=== PATIENT | female | born 1955 | race Caucasian/White ===

== ENCOUNTER 2020-01-04 07:34 | Outpatient (CLI) | payer OTHER, SELFPAY ==
--- NOTE | ~2020-01-04 | MM_ITS ---
EXAMINATION: MM screening jourdan RT w jeannie HISTORY: Screening mammogram TECHNIQUE: Craniocaudal and mediolateral oblique 3-D tomosynthesis images were obtained and synthetic 2-D images were generated. CAD analysis was submitted and interpreted. COMPARISON: 12/31/2018, 01/06/2018, 01/07/2017 right digital screening mammogram examinations BREAST PARENCHYMAL COMPOSITION: There are scattered areas of fibroglandular density. FINDINGS: There is no evidence of suspicious mass, calcification, or architectural distortion to sugg est malignancy. There has been no suspicious interval change. IMPRESSION: 1. No mammographic evidence of malignancy. 2. Recommend routine screening mammography in one year. BI-RADS Category 1: Negative Reviewed, dictated and finalized at location A. 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
== END 2020-01-04 07:35 | disposition home or self-care (01) ==
PROVIDERS: PCP Obstetrics & Gynecology; Visit Provider Obstetrics & Gynecology
DX: Z12.31 Encounter for screening mammogram for malignant neoplasm of breast (principal)
CPT/HCPCS: 77063; 77067

== ENCOUNTER 2021-01-09 08:19 | Outpatient (CLI) | payer MEDICARE, SELFPAY ==
--- NOTE | ~2021-01-09 | MM_ITS ---
EXAMINATION: MM screening jourdan RT w jeannie HISTORY: Screening mammogram TECHNIQUE: Craniocaudal and mediolateral oblique 3-D tomosynthesis images were obtained and synthetic 2-D images were generated. CAD analysis was submitted and interpreted. COMPARISON: 01/04/2020, 12/31/2018, 01/06/2018 right screening mammogram examinations BREAST PARENCHYMAL COMPOSITION: There are scattered areas of fibroglandular density. FINDINGS: History of right breast reduction in 2006. There is no evidence of suspicious mass, calcifi cation, or architectural distortion to suggest malignancy in either breast. There has been no suspici ous interval change. IMPRESSION: 1. No mammographic evidence of malignancy. 2. Recommend routine screening mammography in one year. BI-RADS Category 1: Negative Reviewed, dictated and finalized at location A. 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
== END 2021-01-09 08:20 | disposition home or self-care (01) ==
LOC: ANHIMG 08:22
PROVIDERS: PCP Obstetrics & Gynecology; Visit Provider Obstetrics & Gynecology
DX: Z12.31 Encounter for screening mammogram for malignant neoplasm of breast (principal)
CPT/HCPCS: 77063; 77067

== ENCOUNTER 2021-07-14 13:47 | Emergency (ER) | payer MEDICARE, SELFPAY ==
[2021-07-14 13:53] VITALS: BP 160/89; PULSE 108; RESP 18; TEMP 36.9; O2SAT 100
--- NOTE | 2021-07-14 14:15 | ED.EAR ---
HPI - Ear Problem General Chief complaint: Ear Stated complaint: Lt Ear Irritation Time Seen by Provider: 07/14/21 14:15 History of Present Illness HPI Narrative: Martha Riojas is a 65 yo female with PMH with breast cancer [facility] who comes with left ear pain and feels like there is cotton cotton in the ear from use of a Q-tip yesterday Related Data Allergies Allergy/AdvReac Type Severity Reaction Status Date / Time Penicillins Allergy Severe Swelling Verified 07/14/21 13:58 of Lip/Tongue/Throat HYDROCODONE BIT Allergy Mild Hives Uncoded 07/14/21 13:58 Review of Systems Review of Systems: CONSTITUTIONAL: Denies fever, chills, sweats. EYES: Denies visual changes, redness, discharge. ENT: Denies rhinorrhea, congestion, sore throat, left otalgia. Feels clogged CARDIOVASCULAR: Denies chest pain, palpitations, edema. RESPIRATORY: Denies dyspnea, wheezing, cough GASTROINTESTINAL: Denies abdominal pain, nausea, vomiting, diarrhea. GENITOURINARY: Denies dysuria, hematuria, abnormal discharge SKIN: Denies rash or itching. NEUROLOGIC: Denies numbness, or focal weakness. PSYCHIATRIC: Denies anxiety or depression. [facility] Past Medical History Medical History Breast cancer Social History Social History (Updated 07/14/21 @ 14:18 by Flor Bradley CNP) Smoking status: Never smoker Alcohol use details: Rarely drinks Comments At time of signature, I agree with nursing past medical, surgical, social and family history. There is no relevant family history pertinent to the presenting complaint. Exam Narrative: GENERAL: This is a well-nourished, well-developed patient, in mild distress. HEAD: normocephalic, atraumatic. EYES: Sclera clear/white. Vision is grossly intact. EARS: External ears normal, auditory canal on left is mildly erythematous and patient complaining of feeling like something is in there- TMs normal without perforation. Hearing grossly intact. NOSE: External nose normal without nasal discharge, nares without redness, no rhinorrhea. THROAT: Mucous membranes moist, NECK: Neck supple, non-tender CARDIOVASCULAR: Regular rate and rhythm without murmurs, gallops, or rubs. RESPIRATORY: Clear to auscultation. Breath sounds equal bilaterally. No wheezes, rales, or rhonchi. GASTROINTESTINAL: Not done SKIN: warm, intact with no suspicious lesions or rash, good texture and turgor. NEURO: awake, alert, and oriented to person, place and time. There were no obvious focal neurologic abnormalities. Steady gait EXTREMITIES: Normal range of motion. BACK: Nontender without deformity Course Course Emergency Course: Patient comes with a left ear pain and feeling like cotton was left in the ear from her using a Q-tip Left ear flushed with normal saline with an elephant ear with little to no return questionable cotton fibers but no large amount return Patient given Debrox and polymyxin eardrops and if sensation continues should go to ENT Level of Care: Express Care Visit Vital Signs Vital signs: Vital Signs Temperature 98.5 F 07/14/21 13:53 Pulse Rate 108 H 07/14/21 13:53 Respiratory Rate 18 07/14/21 13:53 Blood Pressure 160/89 H 07/14/21 13:53 Pulse Oximetry 100 07/14/21 13:53 Oxygen Delivery Room Air 07/14/21 13:53 Temperature 98.5 F 07/14/21 13:53 Pulse Rate 108 H 07/14/21 13:53 Respiratory Rate 18 07/14/21 13:53 Blood Pressure 160/89 H 07/14/21 13:53 Pulse Oximetry 100 07/14/21 13:53 Oxygen Delivery Room Air 07/14/21 13:53 Procedures Foreign Body Removal Foreign Body #1: Foreign Body Removal Date: 07/14/21 Foreign Body Removal Time: 14:00 Time Out Performed: no Site: left and ear Description of foreign body: other (cotton) Technique: other (irrigation) Confirmed by:: patient report Complications: bleeding Post-procedure exam: awake,
== END 2021-07-14 14:27 | disposition home or self-care (01) ==
PROVIDERS: Emergency Provider Nurse Practitioner; PCP Internal Medicine
DX: S00.412A Abrasion of left ear, initial encounter (principal); X58.XXXA Exposure to other specified factors, initial encounter; Z85.3 Personal history of malignant neoplasm of breast
CPT/HCPCS: 99213; G0463

== ENCOUNTER 2021-08-24 07:52 | Outpatient (CLI) | payer MEDICARE, SELFPAY ==
[2021-08-24 08:20] LABS: Basophils Percent Auto 0.2 % (0.2-1.2); Eosinophils Absolute Auto 0.1 K/mm3 (0-0.3); Eosinophils Percent Auto 1.9 % (0-4.4); Hemoglobin 15.8 g/dL (12.0-15.0); Immature Granulocyte Absolute 0.02 K/mm3 (0.00-0.031); Immature Granulocyte Percent A 0.4 % (0-0.5); Lymphocytes Absolute Auto 1.48 K/mm3 (0.9-3.2); Mean Corpuscular HGB Conc 34.3 g/dl (32-36); Mean Corpuscular Hemoglobin 28.1 pg (26-34); Mean Corpuscular Volume 81.9 fl (80-100); Mean Platelet Volume 8.9 fl (7.4-10.4); Monocytes Absolute Auto 0.3 K/mm3 (0.1-0.6); Monocytes Percent Auto 5.4 % (2.6-8.5); Neutrophils Absolute Auto 3.8 K/mm3 (1.3-6.7); Neutrophils Percent Auto 66.1 % (45.5-73.1); Platelet Count Result 287 k/mm3 (150-375); Red Blood Count 5.62 M/mm3 (4.2-5.4); Red Cell Distribution Width 12.3 % (11.5-14.5); White Blood Count 5.7 K/mm3 (4.5-10.0)
[2021-08-24 09:23] LABS: Alanine Aminotransferase 34 U/L (6-35); Albumin Level 4.7 g/dL (3.5-5.1); Alkaline Phosphatase 121 U/L (38-126); Anion Gap 7 mmol/L (8-16); Aspartate Amino Transferase 27 U/L (14-36); Bilirubin,Total 0.6 mg/dL (0.2-1.3); Blood Urea Nitrogen 15 mg/dL (7-17); Calcium 9.5 mg/dL (8.4-10.2); Carbon Dioxide 27 mmol/L (22-30); Chloride 103 mmol/L (98-107); Cholesterol 263 mg/dL (0-200); Estimated Glomerular Filt Rate > 60; Glucose 109 mg/dL (65-110); HDL Direct 37 mg/dL; Potassium 4.1 mmol/L (3.4-5.0); Sodium 137 mmol/L (137-145); Triglycerides 191 mg/dL (<150)
[2021-08-24 09:34] LABS: LDL Cholesterol Direct 162 mg/dL
[2021-08-24 10:28] LABS: Folic Acid > 20.0 ng/mL (2.76->20)
== END 2021-08-24 07:53 | disposition home or self-care (01) ==
LOC: ANHLAB 07:56
PROVIDERS: PCP Internal Medicine; Visit Provider Internal Medicine
DX: R53.83 Other fatigue (principal); R74.8 Abnormal levels of other serum enzymes
CPT/HCPCS: 36415; 80053; 80061; 82607; 82746; 84443; 85025

== ENCOUNTER 2021-10-23 00:28 | Day surgery (SDC) | payer MEDICARE, SELFPAY ==
[2021-10-06 16:03] VITALS: BMI 25.5
--- NOTE | 2021-10-20 15:30 | PM.HPGS ---
History of Present Illness History of Present Illness Consent: Risks, benefits, and alternatives have been discussed and questions answered. Patient agrees to proceed with procedure. Chief complaint: neoplasm screening Narrative: Martha Riojas is a 66 year old female Referred for colon cancer screening. Her last colonoscopy was 11 years ago and was unremarkable. Review of Systems Review of Systems: All systems reviewed & are unremarkable except as noted in HPI and below PMFSH Past Medical History Medical History Allergies Breast cancer Encounter for exchange of left breast implant Surgical History Surgical History History of appendectomy History of breast mammoplasty History of delivery History of left breast implant History of left mastectomy Family History Family History Father Heart attack Mother Breast cancer Hypothyroidism Social History Social History Smoking status: Never smoker Alcohol intake: never Alcohol use details: Rarely drinks Substance use: never Substance use type: does not use Living arrangements: with family Spiritual care concerns: No Meds Home Medications and Allergies Home Medications Medication Instructions Recorded Confirmed Type Lactobacillus acidophilus 10 mg PO DAILY 08/21/21 10/23/21 History (Acidophilus capsule) calcium phos,tribasic 260 mg-D3 25 1 tablet PO DAILY 08/21/21 10/23/21 History mcg-herbal 50 mg chewable tablet (Alive Calcium-Vitamin D3) estradiol 0.01% (0.1 mg/gram) 1 appful vaginal .PRN 08/21/21 10/23/21 History vaginal cream fluticasone propionate 50 1 spray intranasal DAILY 08/21/21 10/23/21 History mcg/actuation nasal spray,suspension (Flonase Allergy Relief) multivitamin 1 tablet PO DAILY 08/21/21 10/23/21 History omega 5-rjc-jqo-fish oil 300 1 cap PO DAILY 08/21/21 10/23/21 History mg-1,000 mg capsule (Fish Oil) Allergies Allergy/AdvReac Type Severity Reaction Status Date / Time Penicillins Allergy Severe Swelling Verified 10/23/21 08:35 of Lip/Tongue/Throat HYDROCODONE BIT Allergy Mild Hives Uncoded 10/23/21 08:35 Exam Resp: Auscultation: clear to auscultation bilaterally Cardio: Rate: regular rate Rhythm: regular rhythm GI: GI Palp: Yes Soft to palpation and No Tenderness to palpation present (GI) Assessment and Plan Assessment and plan (1) Colon cancer screening: Code(s): Z12.11 - Encounter for screening for malignant neoplasm of colon Status: Acute Assessment and Plan: Colonoscopy with possible biopsy or polypectomy or cautery or injection of substances.
--- NOTE | 2021-10-23 07:49 | P.PNAN_ITS ---
Anes - Initial Pre Proc Eval Procedure: Operation Date: 10/23/21 09:30 Proposed Procedures p Screening Colonoscopy - Franki Ibarra MD Date/Time: 10/23/21 07:49 Surgeon: Franki Ibarra MD Pre Op Diagnosis: neoplasm screening Patient Data Age: 66 Gender: F Height: 1.63 m Weight: 67.5 kg Allergies Allergy/AdvReac Type Severity Reaction Status Date / Time Penicillins Allergy Severe Swelling Verified 10/23/21 08:35 of Lip/Tongue/Throat HYDROCODONE BIT Allergy Mild Hives Uncoded 10/23/21 08:35 Home Medications Medication Instructions Recorded Confirmed Type Lactobacillus acidophilus 10 mg PO DAILY 08/21/21 10/23/21 History (Acidophilus capsule) calcium phos,tribasic 260 mg-D3 25 1 tablet PO DAILY 08/21/21 10/23/21 History mcg-herbal 50 mg chewable tablet (Alive Calcium-Vitamin D3) estradiol 0.01% (0.1 mg/gram) 1 appful vaginal .PRN 08/21/21 10/23/21 History vaginal cream fluticasone propionate 50 1 spray intranasal DAILY 08/21/21 10/23/21 History mcg/actuation nasal spray,suspension (Flonase Allergy Relief) multivitamin 1 tablet PO DAILY 08/21/21 10/23/21 History omega 2-smp-dny-fish oil 300 1 cap PO DAILY 08/21/21 10/23/21 History mg-1,000 mg capsule (Fish Oil) Patient hx anesthesia problems: none Family hx anesthesia problems: none Results Review: All pre-operative results and documents have been reviewed as part of the pre- operative evaluation. [facility] Past Medical History Medical History (Updated 10/20/21 @ 15:39 by Franki Ibarra MD) Allergies Breast cancer Encounter for exchange of left breast implant Surgical History Surgical History (Updated 08/21/21 @ 14:01 by Fan Hickey MA) History of appendectomy History of breast mammoplasty History of delivery History of left breast implant History of left mastectomy Family History Family History (Updated 08/21/21 @ 14:02 by Fan Hickey MA) Father Heart attack Mother Breast cancer Hypothyroidism Social History Social History Smoking status: Never smoker Alcohol intake: never Alcohol use details: Rarely drinks Substance use: never Substance use type: does not use Living arrangements: with family Spiritual care concerns: No Anes - Eval Final PreProcedure Day of Procedure 10/23/21 07:49 Patient weight: overweight Heart: regular rate and rhythm Lungs: clear to auscultation Airway: Mallampati scale class II Neurological: alert and oriented Last oral intake: >/= 8 hours ASA classification: II Emergent: no Anesthetic plan: proceed Anesthesia type and monitoring: general GIVS and standard monitoring Results Review: All pre-operative results and documents have been reviewed as part of the pre- operative evaluation. Informed Consent: The patient's anesthetic plan and its attendant risks and benefits were discussed with the patient/family/POA. Questions were solicited and answers provided to the satisfaction of the patient/family/POA.
[2021-10-23 08:36] VITALS: BP 186/87; PULSE 140; RESP 17; TEMP 36.8; O2SAT 97; BMI 24.3
[2021-10-23] MEDS: LACTATED RINGERS 1,000 ML 150 ML IV CONT (09:24)
[2021-10-23 09:47] VITALS: BP 109/66; PULSE 103; RESP 17; O2SAT 100
[2021-10-23 09:57] VITALS: BP 114/74; PULSE 100; RESP 17; O2SAT 98
[2021-10-23 10:05] VITALS: BP 116/75; PULSE 98; RESP 17; O2SAT 98
== END 2021-10-23 10:18 | disposition home or self-care (01) ==
PROVIDERS: PCP Internal Medicine; Visit Provider Internal Medicine Gastroenterology
PROC: 0DJD8ZZ Inspection of Lower Intestinal Tract, Via Natural or Artificial Opening Endoscopic (ICD-10-PCS; CPT 45378; principal; 2021-10-23 09:30)
DX: Z12.11 Encounter for screening for malignant neoplasm of colon (principal); K57.30 Diverticulosis of large intestine without perforation or abscess without bleeding; Z85.3 Personal history of malignant neoplasm of breast
CPT/HCPCS: G0121; J2704; J7120

== ENCOUNTER 2022-01-19 10:16 | Outpatient (CLI) | payer MEDICARE, SELFPAY ==
--- NOTE | ~2022-01-19 | MM_ITS ---
EXAMINATION: MM screening jourdan RT w jeannie HISTORY: Screening right mammogram, history of left mastectomy TECHNIQUE: Craniocaudal and mediolateral oblique 3-D tomosynthesis images were obtained and synthetic 2-D images were generated. CAD analysis was submitted and interpreted. COMPARISON: 01/09/2021, 01/04/2020, 12/31/2018 BREAST PARENCHYMAL COMPOSITION: There are scattered areas of fibroglandular density. FINDINGS: An asymmetry is present in the middle third of the outer breast 5 cm from the nipple on the craniocaudal view. IMPRESSION: 1. Right breast asymmetry on the craniocaudal view. 2. Additional mammographic views and possible breast ultrasound are recommended. BI-RADS Category 0: Incomplete: Needs additional imaging evaluation. Reviewed, dictated and finalized at location A. 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 Right breast asymmetry on the craniocaudal view. 2. Additional mammographic views and possible breast ultrasound are recommended . BI-RADS Category 0: Incomplete: Needs additional imaging evaluation.
== END 2022-01-19 10:17 | disposition home or self-care (01) ==
PROVIDERS: PCP Internal Medicine; Visit Provider Obstetrics & Gynecology
DX: Z12.31 Encounter for screening mammogram for malignant neoplasm of breast (principal); R92.8 Other abnormal and inconclusive findings on diagnostic imaging of breast
CPT/HCPCS: 77063; 77067

== ENCOUNTER 2022-02-13 12:42 | Outpatient (CLI) | payer MEDICARE, SELFPAY ==
--- NOTE | ~2022-02-13 | MM_ITS ---
EXAMINATION: MM diagnostic jourdan RT w jeannie HISTORY: Right breast asymmetry on screening mammogram TECHNIQUE: Additional 3-D tomosynthesis images of the right breast were performed and synthetic 2-D i mages were generated. CAD analysis was submitted and interpreted. COMPARISON: 01/19/2022, 01/09/2021, 01/04/2020 FINDINGS: There is a return to baseline fibroglandular appearance with spot compression of the right breast in the area questioned on screening mammogram. No suspicious mass, calcification, or it network architect ural distortion are identified. IMPRESSION: 1. No mammographic evidence of malignancy. 2. Recommend routine screening mammography in one year. BI-RADS Category 1: Negative Reviewed, dictated and finalized at location A. 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
== END 2022-02-13 12:43 | disposition home or self-care (01) ==
PROVIDERS: PCP Internal Medicine; Visit Provider Obstetrics & Gynecology
DX: R92.8 Other abnormal and inconclusive findings on diagnostic imaging of breast (principal)
CPT/HCPCS: 77061; 77065; G0279

== ENCOUNTER 2022-10-02 07:37 | Outpatient (CLI) | payer MEDICARE, SELFPAY ==
[2022-10-02 08:06] LABS: Basophils Percent Auto 0.9 % (0.2-1.2); Eosinophils Absolute Auto 0.1 K/mm3 (0-0.3); Eosinophils Percent Auto 3.1 % (0-4.4); Hematocrit 47.6 % (37.0-47.0); Hemoglobin 16.1 g/dL (12.0-15.0); Immature Granulocyte Absolute 0.03 K/mm3 (0.00-0.031); Immature Granulocyte Percent A 0.7 % (0-0.5); Lymphocytes Absolute Auto 1.44 K/mm3 (0.9-3.2); Lymphocytes Percent Auto 31.4 % (18.3-44.2); Mean Corpuscular HGB Conc 33.8 g/dl (32-36); Mean Corpuscular Hemoglobin 28.2 pg (26-34); Mean Corpuscular Volume 83.5 fl (80-100); Mean Platelet Volume 9.4 fl (7.4-10.4); Monocytes Absolute Auto 0.3 K/mm3 (0.1-0.6); Monocytes Percent Auto 5.9 % (2.6-8.5); Neutrophils Absolute Auto 2.7 K/mm3 (1.3-6.7); Platelet Count Result 236 k/mm3 (150-375); Red Cell Distribution Width 13.1 % (11.5-14.5); White Blood Count 4.6 K/mm3 (4.5-10.0)
[2022-10-02 08:24] LABS: Alanine Aminotransferase 34 U/L (6-35); Albumin Level 4.6 g/dL (3.5-5.1); Alkaline Phosphatase 109 U/L (38-126); Anion Gap 9 mmol/L (8-16); Aspartate Amino Transferase 28 U/L (14-36); Bilirubin,Total 0.5 mg/dL (0.2-1.3); Blood Urea Nitrogen 12 mg/dL (7-17); Calcium 9.5 mg/dL (8.4-10.2); Carbon Dioxide 25 mmol/L (22-30); Chloride 103 mmol/L (98-107); Cholesterol 262 mg/dL (0-200); Estimated Glomerular Filt Rate > 60; Glucose 119 mg/dL (65-110); HDL Direct 42 mg/dL; Sodium 137 mmol/L (137-145); Triglycerides 261 mg/dL (<150)
[2022-10-02 08:35] LABS: LDL Cholesterol Direct 150 mg/dL
== END 2022-10-02 07:38 | disposition home or self-care (01) ==
PROVIDERS: PCP Internal Medicine; Visit Provider Internal Medicine
DX: C50.919 Malignant neoplasm of unspecified site of unspecified female breast (principal); R53.83 Other fatigue; I10 Essential (primary) hypertension; E78.5 Hyperlipidemia, unspecified
CPT/HCPCS: 36415; 80053; 80061; 84443; 85025

== ENCOUNTER 2023-06-03 07:51 | Outpatient (CLI) | payer MEDICARE, SELFPAY ==
--- NOTE | ~2023-06-03 | MM_ITS ---
EXAMINATION: MM screening jourdan RT w jeannie HISTORY: Screening mammogram TECHNIQUE: Craniocaudal and mediolateral oblique 3-D tomosynthesis images were obtained and synthetic 2-D images were generated. CAD analysis was submitted and interpreted. COMPARISON: 02/13/2022 diagnostic right mammogram 01/19/2022, 01/09/2021 right screening mammogram examinations BREAST PARENCHYMAL COMPOSITION: There are scattered areas of fibroglandular density. FINDINGS: There is no evidence of suspicious mass, calcification, or architectural distortion to sugg est malignancy in either breast. There has been no suspicious interval change. IMPRESSION: 1. No mammographic evidence of malignancy. 2. Recommend routine screening mammography in one year. BI-RADS Category 1: Negative Reviewed, dictated and finalized at location A.
== END 2023-06-03 07:52 | disposition home or self-care (01) ==
LOC: ANHIMG 07:54
PROVIDERS: PCP Obstetrics & Gynecology; Visit Provider Obstetrics & Gynecology
DX: Z12.31 Encounter for screening mammogram for malignant neoplasm of breast (principal)
CPT/HCPCS: 77063; 77067

== ENCOUNTER 2024-02-21 11:24 | Emergency (ER) | payer MEDICARE, SELFPAY ==
--- NOTE | ~2024-02-21 | XR_ITS ---
EXAMINATION: XR wrist LT min 3V DATE: 02/21/2024 11:48 INDICATION: Left wrist pain. Fall. TECHNIQUE: 3 views of left wrist were obtained. COMPARISON: None. FINDINGS: There is a comminuted fractured of distal radius without involvement of the distal radiouln ar joint or distal articular surface. The main distal fracture fragment demonstrates impaction, 3 mm dorsal displacement, and dorsal angulation. There is 35 degrees dorsal tilt of the distal articular s urface. Joint spaces are normal. IMPRESSION: 1. Comminuted fracture of distal radius. Reviewed, dictated and finalized at location A. S ROOM SUPERVISOR
[2024-02-21 11:28] VITALS: BP 120/47; PULSE 75; RESP 14; TEMP 36.2; O2SAT 100
--- NOTE | 2024-02-21 11:32 | PC.NURSE ---
Ice pack/sling applied in Triage
--- NOTE | 2024-02-21 12:37 | ED.UPPEXIN ---
HPI - Extremity Injury (Upper) General Chief Complaint: Extremity Injury, Upper Stated Complaint: L wrist injury Time Seen by Provider: 02/21/24 12:20 this is a 68-year-old female who presents to the ED for chief complaint of left wrist injury that occurred just prior to arrival. Patient was outside shoveling snow when she slipped on the ice. States that she fell onto an outstretched left hand. Reports immediate pain to the left wrist but no pain throughout the forearm, elbow or shoulder. Denies numbness, weakness or any further injury. Source: patient Mode of arrival: ambulatory Limitations: no limitations Related Data Home Medications ?Medication ?Instructions ?Recorded ?Confirmed ?Last Taken ?Type Lactobacillus acidophilus 10 mg PO DAILY 08/21/21 10/08/22 10/22/21 History (Acidophilus capsule) calcium 260 mg (phos,tribasic)-D3 1 tablet PO DAILY 08/21/21 10/08/22 10/22/21 History 25 mcg-herbal 50 mg chewable tablet (Alive Calcium-Vitamin D3) estradiol 0.01% (0.1 mg/gram) 1 appful vaginal .PRN 08/21/21 10/08/22 10/22/21 History vaginal cream fluticasone propionate 50 1 spray intranasal DAILY 08/21/21 10/08/22 10/22/21 History mcg/actuation nasal spray,suspension (Flonase Allergy Relief) multivitamin 1 tablet PO DAILY 08/21/21 10/08/22 10/22/21 History omega 0-ejb-egf-fish oil 300 1 cap PO DAILY 08/21/21 10/08/22 10/22/21 History mg-1,000 mg capsule (Fish Oil) fexofenadine 180 mg tablet 180 mg PO DAILY 06/04/22 10/08/22 Unknown History (Nga Allergy) Allergies Allergy/AdvReac Type Severity Reaction Status Date / Time Penicillins Allergy Severe Swelling Verified 02/21/24 12:35 of Lip/Tongue/Throat hydrocodone Allergy Mild Hives Verified 02/21/24 12:58 Review of Systems Review of Systems: All systems as dictated in HPI PMFSH Past Medical History Medical History Allergies Breast cancer Encounter for exchange of left breast implant Surgical History Surgical History History of appendectomy History of breast mammoplasty History of delivery History of left breast implant History of left mastectomy Family History Family History Father Heart attack Mother Breast cancer Hypothyroidism Social History Social History Smoking status: Never smoker Alcohol intake: never Alcohol use details: Rarely drinks Substance use: never Substance use type: does not use Lack of Transportation: No Lack of Food: Never True Current Housing: I Have Housing Concerned About Future Housing: No Difficulty Paying Gas/Electric Bills: No Difficulty Paying for Meds: No Currently Unemployed: No Education: Associate Degree Difficulty w/ Childcare or Family Care: No Living arrangements: with family Spiritual care concerns: No Exam Narrative: GENERAL: Well-appearing, well-nourished, and in no acute distress. HEAD: Normocephalic, atraumatic. EYES: PERRLA and EOMI. ENT: Nares clear, no rhinorrhea or epistaxis. Mucous membranes moist. Oropharynx without tonsillar hypertrophy exudate or other lesions. NECK: Supple. No adenopathy or masses. CHEST: No respiratory distress. Clear to auscultation. No wheezes rales or rhonchi HEART: Regular rate and rhythm. No murmur heard. Normal peripheral pulses. ABDOMEN: Soft, nontender, nondistended, normal active bowel sounds. MSK: LUE: Moderate swelling and tenderness throughout the left wrist. No crepitus. No bruising. Neurovascularly intact distally. No gross deformity. R UE: Benign SKIN: Warm, dry, no rash. NEURO: Alert and oriented x4. No focal deficits. PSYCH: Normal mood and affect. Course Vital Signs Vital signs: Vital Signs Temperature 97.1 F L 02/21/24 11:28 Pulse Rate 75 02/21/24 11:28 Respiratory Rate 14 02/21/24 11:28 Blood Pressure 120/47 L 02/21/24 11:28 Pulse Oximetry 100 02/21/24 11:28 Temperature 98.3 F 02/21/24 13:45 Pulse Rate 73 02/21/24 13:45 Respiratory Rate 16 02/21/24 13:45 Blood Pressure 132/55 L 02/21/24 13:45 Pulse Oximetry 99 02/21/24 13:45 MDM - Extremity Injury (Upper) MDM Narrative Medical decision making narrative: This is a 60-year-old female who presents to the ED for chief complaint of left wrist injury that occurred just prior to arrival. She slipped and fell on the ice. Vitals are normal. Exam is remarkable for the above. There is no gross deformity to the wrist or neurovascular compromise. Left wrist x-rays: IMPRESSION: 1. Comminuted fracture of distal radius. Overall the wrist does not appear deformed or have any significant displacement on x-rays. The patient was placed in sugar-tong splint and orthopedic referral will be given. Given dose of pain medications here and will be given short course for [place] for breakthrough pain. Patient will be discharged in stable condition. Supportive measures discussed and return precautions given. Patient is understanding and agreeable with plan for discharge with ortho follow-up. Discharge Plan Discharge Clinical Impression: Closed fracture of left distal radius Patient Disposition: Home, Self-Care Condition: Stable Instructions: Antibiotic Form, Arm Fracture in Adults (ED), Splint Care (ED) Additional Instructions: Your exam and imaging today show a distal radius fracture of your wrist. Please follow-up with orthopedic surgery/ hand surgery for treatment and management of this issue. Continue with splint until otherwise directed by the surgeon. Take Percocet as needed for breakthrough pain. Take Tylenol and ibuprofen at baseline for pain control. Do not exceed 4000 mg of acetaminophen and 1 day. If you have any new or worsening symptoms please return to the ER for further evaluation. Patient Language: Amharic Prescriptions: New oxycodone-acetaminophen [Percocet] 5-325 mg tablet 1 tablet PO Q6H PRN (Reason: pain) Qty: 14 0RF No Action fexofenadine [Nga Allergy] 180 mg tablet 180 mg PO DAILY multivitamin Tablet 1 tablet PO DAILY Alive Calcium-Vitamin D3 260 mg calcium- 25 mcg-50 mg tablet,chewable 1 tablet PO DAILY Acidophilus Capsule 10 mg PO DAILY estradiol 0.01 % (0.1 mg/gram) cream 1 appful vaginal .PRN Rx Instructions: for 14 days omega 1-aua-swq-fish oil [Fish Oil] 300-1,000 mg capsule 1 cap PO DAILY fluticasone propionate [Flonase Allergy Relief] 50 mcg/actuation spray,suspension 1 spray intranasal DAILY Rx Instructions: administer into each nostril carvedilol 6.25 mg tablet 6.25 mg PO Q12H Qty: 180 0RF Rx Instructions: must administer with a meal/food atorvastatin 20 mg tablet 20 mg PO DAILY Qty: 90 0RF Follow-up/Referrals: Kisha Parrish MD [Physician] - Dago Mauro MD [Physician] - Jimi Marsh MD [Physician] - Time of Disposition: 12:40
[2024-02-21] MEDS: HYDROcodone/acetaminophen (*CRX) 5-325 MG TABLET 1 TAB PO (12:49)
[2024-02-21 13:45] VITALS: BP 132/55; PULSE 73; RESP 16; TEMP 36.8; O2SAT 99
== END 2024-02-21 13:50 | disposition home or self-care (01) ==
LOC: ANHED 12:43
PROVIDERS: Emergency Provider Physician Assistant; PCP Physician Assistant
DX: S52.592A Other fractures of lower end of left radius, initial encounter for closed fracture (principal); Z85.3 Personal history of malignant neoplasm of breast; Z90.12 Acquired absence of left breast and nipple; W00.0XXA Fall on same level due to ice and snow, initial encounter; Y93.H1 Activity, digging, shoveling and raking
CPT/HCPCS: 29125; 73110; 99284; A4565; A9270

== ENCOUNTER 2024-03-02 00:15 | Day surgery (SDC) | payer MEDICARE, SELFPAY ==
[2024-02-26 11:14] VITALS: BMI 24.2
--- NOTE | 2024-02-26 11:24 | PC.NURSE ---
Report to the Outpatient Waiting Room, entrance under the green pavilion located off [facility], at time __06:00am on date ___03/02/24____. Planned Procedure Time: ___07:30am .? Time changes happen often and if your time is changed the preop area will call you the afternoon before. - You and your visitor will be asked to self-screen and do not enter if you have any COVID symptoms. Please call surgeon if you need to reschedule. - A mask is optional within the hospital at this time. Patients may have clear liquids (water, carbonated beverages, clear teas, apple juice) until 3 hours prior to surgery with a maximum of 20 ounces. - No food from midnight until time of surgery and no smoking. This includes no chewing gum, candy or mints.(0430am) Take only the following medications with a SIP of water on the morning of surgery: ____Coreg and Fluoxetine, Tylenol and oxycodone if needed for pain DO NOT STOP ANY OF YOUR OTHER PRESCRIPTION MEDICATIONS PRIOR TO SURGERY EXCEPT THE FOLLOWING Medications to discontinue per physician No NSAIDS or Aspirin containing products for [address] Marsh- Date to take last dose is 02/23/24 Hold all vitamins and supplements for 3 days prior per Anesthesia. Date to take last dose___02/27/24 Please no make-up, nail hungarian, hairspray, perfume, deodorant, or body powder the day of surgery.? No jewelry (including any body piercings) or valuables the day of surgery, leave them at home.? Please take a shower or bath the night before, or the morning of, surgery with an antibacterial soap.? Wear comfortable, loose fitting clothing.? - Jewelry must be removed prior to entering the operating room.? Rings and piercings that are not removed may be cut off. - The hospital will not accept responsibility for valuables.? - Please leave all valuables, including medications, at home the day of surgery. If you are going home after surgery, a licensed city driver must drive you home.? - NO public transportation without another adult if you receive anesthesia. - We recommend that an adult stay with you for 24 hours following discharge. - We also recommend that you do not drive, make important decision, drink alcoholic beverages, or take any drugs that were not prescribed by your health care provider for at least 24 hours after your discharge time. Follow any additional instructions given to you from your surgeon. Telephone instructions given to __Patient and asked if any additional questions and then verbalized understanding. Patient advised to call surgeon office or pre surgery nurse liaison [phone] if any additional questions.
[2024-03-02] VITALS (8 sets, daily range): BP systolic 115–146; BP diastolic 56–72; PULSE 68–81; RESP 12–20; TEMP 36.2; O2SAT 98–100
--- NOTE | ~2024-03-02 | XR_ITS ---
EXAMINATION: XR surgery orthopedic DATE: 03/02/2024 09:08 INDICATION: Distal left radius fracture. TECHNIQUE: 4 intraoperative spot fluoroscopic views of left wrist were obtained. I was not present. F luoroscopy exposure time was 1 minute 27 seconds. COMPARISON: Left wrist radiographs 02/21/2024 FINDINGS: There is a comminuted fracture of distal radius status post open reduction internal fixatio n with volar plate and screws. The distal articular surface demonstrates 0 degrees tilt. IMPRESSION: 1. Comminuted fracture of distal radius status post open reduction internal fixation. Reviewed, dictated and finalized at location B. INTERN IMPRESSION: 1. Comminuted fracture of distal radius status post open reduction internal fix ation.
[2024-03-02] MEDS: LACTATED RINGERS 1,000 ML 30 ML IV CONT ×2 (06:20→09:15)
[2024-03-02] MEDS: KETOROLAC 15 MG/ML VIAL (*BKC) IV PUSH (06:25)
[2024-03-02] MEDS: ACETAMINOPHEN 500 MG TABLET 1000 MG PO (06:25)
--- NOTE | 2024-03-02 07:09 | WPDANESEPPF ---
Anes - Initial Pre Proc Eval Procedure: Operation Date: 03/02/24 07:30 Proposed Procedures p Open Reduction Internal Fixation Left Wrist Distal Radius Fracture - Jimi Marsh MD Date/Time: 03/02/24 07:09 Surgeon: Jimi Marsh MD Pre Op Diagnosis: Left Wrist Distal Radius Fracture Patient Data Age: 68 Gender: F Height: 1.63 m Weight: 65.2 kg Last Vital Signs Temp 97.2 F L 03/02/24 06:06 Pulse 80 03/02/24 06:06 Resp 18 03/02/24 06:06 BP 146/66 H 03/02/24 06:06 Pulse Ox 98 03/02/24 06:06 O2 Del Method Room Air 03/02/24 06:06 Allergies Allergy/AdvReac Type Severity Reaction Status Date / Time Penicillins Allergy Severe Swelling Verified 03/02/24 06:24 of Lip/Tongue/Throat hydrocodone Allergy Mild Hives Verified 03/02/24 06:24 Home Medications ?Medication ?Instructions ?Recorded ?Confirmed ?Type Lactobacillus acidophilus 10 mg PO DAILY 08/21/21 03/02/24 History (Acidophilus capsule) calcium 260 mg (phos,tribasic)-D3 1 tablet PO DAILY 08/21/21 03/02/24 History 25 mcg-herbal 50 mg chewable tablet (Alive Calcium-Vitamin D3) multivitamin 1 tablet PO DAILY 08/21/21 03/02/24 History omega 2-mzz-hoi-fish oil 300 1 cap PO DAILY 08/21/21 02/26/24 History mg-1,000 mg capsule (Fish Oil) atorvastatin 20 mg tablet 20 mg PO DAILY #90 tabs 09/23/23 03/02/24 Rx carvedilol 6.25 mg tablet 6.25 mg PO Q12H #180 tabs 09/23/23 03/02/24 Rx fluoxetine 20 mg capsule 20 mg PO DAILY 02/25/24 03/02/24 History oxycodone-acetaminophen 5 mg-325 1 tablet PO Q6H PRN pain #30 tabs 02/25/24 03/02/24 Rx mg tablet (Percocet) acetaminophen 500 mg tablet 500 mg PO Q6H PRN pain 02/26/24 02/26/24 History (Tylenol Extra Strength) Patient hx anesthesia problems: post op nausea/vomiting (1 time w prev surgery for breast cancer 2006. ) Family hx anesthesia problems: none Results Review: All pre-operative results and documents have been reviewed as part of the pre-operative evaluation. [facility] Past Medical History Medical History Encounter for exchange of left breast implant Allergies Breast cancer Surgical History Surgical History History of breast mammoplasty History of left breast implant History of left mastectomy History of delivery History of appendectomy Family History Family History Father Heart attack Mother Breast cancer Hypothyroidism Social History Social History Smoking status: Never smoker Alcohol intake: never Alcohol use details: Rarely drinks Substance use: never Substance use type: does not use Do You Feel Safe in your Home?: Yes Lack of Transportation: No Lack of Food: Never True Current Housing: I Have Housing Concerned About Future Housing: No Difficulty Paying Gas/Electric Bills: No Difficulty Paying for Meds: No Currently Unemployed: No Education: Associate Degree Difficulty w/ Childcare or Family Care: No Living arrangements: with family Additional living arrangements comments: Spiritual care concerns: No Anes - Eval Final PreProcedure Day of Procedure 03/02/24 07:09 Patient weight: normal Heart: regular rate and rhythm Lungs: clear to auscultation Airway: Mallampati scale class II Neurological: alert and oriented Last oral intake: >/= 8 hours ASA classification: II Emergent: no Anesthetic plan: proceed Anesthesia type and monitoring: general LMA and standard monitoring Results Review: All pre-operative results and documents have been reviewed as part of the pre-operative evaluation. HTN, hyperlipidemia. Pt w slip on ice while shoveling, very active, no cp or sob. Informed Consent: The patient's anesthetic plan and its attendant risks and benefits were discussed with the patient/family/POA. Questions were solicited and answers provided to the satisfaction of the patient/family/POA.
--- NOTE | 2024-03-02 07:26 | WPDHPUPDATE1 ---
History and Physical Update Update Date/Time: 03/02/24 07:26 History and Physical has been reviewed, including an updated exam of the patient. There are NO changes in the patient's condition. Risks, benefits, and alternatives have been discussed and questions answered. Patient agrees to proceed with procedure.
[2024-03-02] MEDS: ceFAZolin 2 GM/D5W 50 ML 2 GM/50 ML BAG IVPB (07:30)
[2024-03-02] MEDS: BUPIVACAINE/EPINEPHRINE 0.5% 50 ML VIAL 10 ML INFILTRATE (08:06)
--- NOTE | 2024-03-02 09:45 | W.PM.PROC2 ---
Procedure Note - Detailed Date of Procedure 03/02/24 Pre-op Diagnosis Left Wrist Distal Radius Fracture Post-op Diagnosis Same Procedure Performed ORIF distal radius extraarticular fracture, left Surgeon Jimi Marsh MD Anesthesia General Findings Volar plate and screws. Good bone quality. Description of Procedure Preoperative antibiotics were given. A general anesthetic was administered. The hand was prepped and draped in the usual sterile fashion with a well-padded tourniquet. The limb was exsanguinated and the tourniquet inflated to 250 millimeters of mercury. A longitudinal incision was created over the flexor carpi radialis tendon. Dissection was brought down through the sheath. The pronator quadratus was identified and released off of the radius. 5 pounds of finger trap traction applied. The fracture was carefully exposed and cleared of debris. Reduction was obtained with traction and manipulation. Fluoroscopy was used to confirm anatomic reduction. The volar plate was placed on the radius and the position was confirmed. Provisional pins were placed. The dynamic cortical screw was applied. The plate was fine tuned and fluoroscopy was use to confirm that the joint would not be violated. Subsequent distal pins and screws were placed, followed by the proximal row. The wound was irrigated and closed. 3-0 Monocryl suture was used to reapproximate the pronator quadratus. The tourniquet was released and meticulous hemostasis was confirmed. The skin was closed with 3-0 Monocryl suture and a running 4-0 Monocryl suture. Steri-Strips were applied on the skin. A sterile bulky dressing with a volar splint was applied. Implants Accu Med volar distal radius plate and screws Estimated Blood Loss 20 Drains No Packing No Pathology None sent Complications No immediate complications Condition Stable Disposition PACU [facility] Billing Surgery - Charge Forward: Surgery Billing
[2024-03-02] MEDS: oxyCODONE HCL (*CRX) 5 MG TAB IR PO (10:20)
--- OUTSIDE RECORDS SUMMARY | 2024-03-05 11:06 | XMS_ITS | Clinical Summary ---
Author Organization [facility] Address [address] [place] [address] Phone Care Team Providers Care Manager Forms Name Role Phone Provider, None Primary Care Provider Unavailabl e Allergies Active Allergy Reactions Criticality Noted Date Comments Penicillins Swelling 04/22/2006 Hydrocodone-Acetaminophen Itching 07/04/2009 And facial flushing Medications other OTHER 25 mg by Other route daily. Aromsin hormone pill Active MULTIPLE VITAMIN PO Take 1 Tab by mouth daily. Active [place]-3 Fatty Acids (FISH OIL) 1200 MG PO CAPS Take 2 Caps by mouth nightly. Active Ascorbic Acid (VITAMIN C) 1000 MG PO TABS Take 1 Tab by mouth daily. Active alendronate 70 MG PO TABS Take 70 mg by mouth every 7 days. Sundays Active Calcium 600 MG PO TABS Take 1 Tab by mouth daily. 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?C (98 ??F) 07/07/2009 11: 55 AM CDT Respiratory Rate 20 07/07/2009 11:5 5 AM CDT Oxygen Saturation 100% 07/07/2009 11: 55 AM CDT Inhaled Oxygen Concentration - - Weight 65.2 kg (143 lb 11.8 oz) 07/07/2009 6:48 AM CDT Height 162.6 cm (5' 4 ) 07/07/2009 6:48 AM CDT Body Mass Index 24.67 07/07/2009 6:48 AM CDT Plan of Treatment Health Maintenance Due Date Last Done Comments DEXA Bone Density 1955 Hepatitis C Virus (HCV) Screening 1955 TdaP Immunization 1955 Colonoscopy 10/11/2000 Colorectal Cancer Screening 10/11/2000 Cologuard 10/11/2005 Immunochemical Fecal Occult Blood 10/11/2005 Pneumococcal Immunization (50+ years) (1 of 1 - PCV) 10/11/2005 Zoster Immunization (1 of 2) 10/11/2005 Influenza Immunization (#1) 2023 SARS-COV-2 Immunization ( - 2023-25 season) 2023 Respiratory Syncytial Virus (RSV) Immunization (Adult) (1 - 1-dose 75+ series) 10/11/2030 Pap Smear Discontinued 01/17/2009, 12/26/2007 Mammogram Unilateral Discontinued 01/23/2011, 01/20/2010, 06/30/2009, Additional history exists Hepatitis B Immunization Aged Out No longer eligible based on patient's age to complete this topic Meningococcal Immunization (ACWY) Aged Out No longer eligible based on patient's age to complete this topic Rotavirus Immunization Aged Out No lo nger eligible based on patient's age to complete this topic Medical Devices Implanted Type Area Waste Management Engineer Device Identifier Shelf Expiration Date Model / Serial / Lot Implt Brst Les Style 68 Rnd 390 To 420cc(Aka Implant Breast Saline Style 68 Round Smooth 390 To 420cc-Ea/1) - [id number] Implanted:Qty : 1 on 07/07/2009 at [facility] IMPLANT Left: Breast ALLERGAN / INAMED 68-390 / [id number] / Procedures Procedure Name Priority Date/Time Associated Diagnosis Comments MIRYAM DIAG RIGHT DIGITAL W CAD Routine 01/23/2011 9:50 AM [employer] History of breast cancer 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 1. There is no mammographic evidence of malignancy. 2. ??A right mammogram in 12 months is recommended. Written results and recommendations were given to the patient at the conclusion of this examination today. Mammogram BI-RADS: 1 - Negative. Narrative 01/23/2011 10:22 AM [employer] Dictating Physician: ??Marija Rao M.D. ? Exam: ?[facility] RIGHT DIGITAL W CAD ??Jan 23, 2011 09:50:00 AM Comparison: ??January 20, 2010, June 30, 2009, January 17, 2009 from the [facility]. History: ??Post left mastectomy for breast cancer in 2006. ??No complaints. Findings: ??Right standard and spot compression views were obtained. ??Current study was also evaluated with a Computer Aided Detection (CAD) system. The tissue density is heterogeneously dense. ??This decreases mammographic sensitivity. ??No significant masses, calcifications, or other significant findings are seen. ??There has been no significant interval change. Procedure Note Marija Rao MD - 01/23/2011 Dictating Physician: Marija Rao M.D. Exam: [facility] BRETT RIGHT DIGITAL W CAD Jan 23, 2011 09:50:00 AM Comparison: January 20, 2010, June 30, 2009, January 17, 2009 from [facility]. History: Post left mastectomy for breast cancer in 2006. Nocomplaints. Findings: Right standard and spot compression views were obtained.Current study was also evaluated with a Computer Aided Detection (CAD)system. The tissue density is heterogeneously dense. This decreases mammographicsensitivity. No significant masses, calcifications, or other significantfindings are seen. There has been no significant interval change. Impression: 1. There is no mammographic evidence of malignancy. 2. A right mammogram in 12 months is recommended. Written results and recommendations were given to the patient at theconclusion of this examination today. Mammogram BI-RADS: 1 - Negative. Swathi Cifuentes MD [facility] MAMMO ORDERABLES Final Re sult * [id number] (01/17/2009 8:17 PM [employer]) 01/17/2009 8:17 PM [employer] 01/17/2009 8:17 PM [employer] Narrative [facility] - 01/25/2009 2:02 PM [employer] CYTOPATHOLOGY REPORT: Patient Name: ??GRACY RIOJAS ?Gender: ??F ? Location: ??[facility] ([facility]) ? Case #: ??[id number] Collect Date: ??01/17/2009 ? Received: ??01/17/2009 ?Reported: ??01/25/2009 Final Cytologic Diagnosis: Vaginal/Cervical/Endocervical, liquid based thin layer preparation (Thin Prepe): ? Satisfactory for evaluation. Endocervical/transformation zone cellular component noted. NEGATIVE FOR INTRAEPITHELIAL LESIONS OR MALIGNANCY No dysplastic squamous cells identified. Atrophic hormonal pattern. Analysis of this sample has been assisted by an automated imaging and review system (Thinprep Imaging System, [employer], [place], [place]). ??The case is further evaluated and finalized by a ramp agent and/or pathologist. Electronically Signed Out By [id number] The PAP smear is a preliminary screening procedure designed to detect the presence of cancerous or precancerous cells of the cervix. ??It is the best means available for early detection of cervical cancer, but it is not perfect. False negative results will sometimes be reported. ??To reduce the possibility of a false negative result, an annual PAP smear is recommended. ??Moreover, any suspicious signs of possible symptoms of cancer should be followed up. us Donell Kim MD PATHOLOGY/CYTOLOGY ORDERA AMOR Final Result [facility] [address] [place] [address] from Last 3 Months or Most Recently Relevant to Health Maintenance Insurance [facility] Care Teams Manager Forms Relationship Specialty Start Date End Date Provider, None KECIA PCP - General 10/30/16
== END 2024-03-02 11:15 | disposition home or self-care (01) ==
PROVIDERS: PCP Physician Assistant; Visit Provider Orthopaedic Surgery
PROC: (CPT 25575; principal; 2024-03-02 07:30)
DX: S52.552A Other extraarticular fracture of lower end of left radius, initial encounter for closed fracture (principal); W00.0XXA Fall on same level due to ice and snow, initial encounter
CPT/HCPCS: 25607; 99199; A9270; C1713; J0690; J1100; J1885; J2003; J2250; J2270; J2405; J2704; J3010; J7120

== ENCOUNTER 2024-03-13 09:16 | Outpatient (CLI) | payer MEDICARE, SELFPAY ==
--- NOTE | ~2024-03-13 | US_ITS ---
US abdomen limited INDICATION: Abnormal liver enzymes PROCEDURE: Realtime right upper abdominal ultrasound. COMPARISON: No prior studies for comparison. FINDINGS: The pancreas is normal without focal mass or pancreatic ductal dilation. Liver echotexture is normal without focal mass or intrahepatic biliary dilatation. There is normal directional flow i n the portal vein. The gallbladder is normal without stones, gallbladder wall thickening or pericholecystic fluid. Comm on bile duct measures 5 mm. No sonographic George's sign. IMPRESSION: 1: Normal limited abdominal ultrasound. Reviewed, dictated and finalized at location A. CTOR OF PROGRAMMING
== END 2024-03-13 09:17 | disposition home or self-care (01) ==
LOC: MICIMG 09:19
PROVIDERS: PCP Physician Assistant; Visit Provider Physician Assistant
DX: R74.01 Elevation of levels of liver transaminase levels (principal)
CPT/HCPCS: 76705

== ENCOUNTER 2024-06-03 07:46 | Outpatient (CLI) | payer MEDICARE, SELFPAY ==
--- NOTE | ~2024-06-03 | MM_ITS ---
EXAMINATION: MM screening jourdan RT w jeannie HISTORY: Screening TECHNIQUE: Craniocaudal and mediolateral oblique 3-D tomosynthesis images were obtained and synthetic 2-D images were generated. CAD analysis was submitted and interpreted. COMPARISON: Comparison to multiple prior studies sequentially, with oldest reviewed study dated 12/13. BREAST PARENCHYMAL COMPOSITION: Not dense: There are scattered areas of fibroglandular density. FINDINGS: There is no evidence of suspicious mass, calcification, or architectural distortion to sugg est malignancy in the right breast. There has been no suspicious interval change. IMPRESSION: 1. No mammographic evidence of malignancy. 2. Recommend routine screening mammography in one year. BI-RADS Category 1: Negative Reviewed, dictated and finalized at location A.
--- OUTSIDE RECORDS SUMMARY | 2024-06-03 07:52 | XMS_ITS | Clinical Summary ---
Author Organization [facility] Address [address] [place] [address] Phone Care Team Providers Care Breakfast Supervisor Name Role Phone Provider, None Primary Care Provider Unavailabl e Allergies Active Allergy Reactions Criticality Noted Date Comments Penicillins Swelling 04/22/2006 Hydrocodone-Acetaminophen Itching 07/04/2009 And facial flushing Medications other OTHER 25 mg by Other route daily. Aromsin hormone pill Active MULTIPLE VITAMIN PO Take 1 Tab by mouth daily. 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 Gender Identity Not on file Sexual Orientation Not on file Last Filed Vital Signs Vital Sign Reading Time Taken Comments Blood Pressure 119/60 07/07/2009 11:55 AM CDT Pulse 97 07/07/2009 11:55 AM CDT Temperature 36.7 C (98 F) 07/07/2009 11:55 AM CDT Respiratory Rate 20 07/07/2009 11:5 [...] Immunization (#1) 2023 SARS-COV-2 Immunization ( - 2023- season) 2023 Respiratory Syncytial Virus (RSV) Immunization [...] this topic Medical Devices Implanted Type Area Sales Closer Device Identifier Shelf Expiration Date Model / Serial / Lot Implt Brst Les Style 68 Rnd 390 To 420cc(Aka Implant Breast Saline Style 68 Round Smooth 390 To 420cc-Ea/1) - [id number] Implanted:Qty : 1 on 07/07/2009 at [facility] IMPLANT Left: Breast ALLERGAN / INAMED 68-390 / [id number] / Procedures Procedure Name Priority Date/Time Associated Diagnosis Comments MIRYAM DIAG RIGHT DIGITAL W CAD Routine 01/23/2011 9:50 AM 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 There is no mammographic evidence of malignancy. 2. A right mammogram in 12 months is recommended. Written results and recommendations were given to the patient at the conclusion of this examination today. Mammogram BI-RADS: 1 - Negative. Narrative 01/23/2011 10:22 AM JAVASCRIPT ENGINEER Dictating Physician: Marija Rao M.D. Exam: [facility] RIGHT DIGITAL W CAD Jan 23, 2011 09:50:00 AM Comparison: January 20, 2010, June 30, 2009, January 17, [address] [facility]. History: Post left mastectomy for breast cancer in 2006. No complaints. Findings: Right standard and spot compression views were obtained. Current study was also evaluated with a Computer Aided Detection (CAD) system. The tissue density is heterogeneously dense. This decreases mammographic sensitivity. No significant masses, calcifications, or other significant findings are seen. There has been no significant interval change. Procedure Note Marija Rao MD - 01/23/2011 Dictating Physician: Marija Rao M.D. Exam: [facility] RIGHT DIGITAL W CAD Jan 23, 2011 09:50:00 AM Comparison: January 20, 2010, June 30, 2009, January 17, 2009 from [facility]. History: Post left mastectomy for breast cancer [...] examination today. Mammogram BI-RADS: 1 - Negative. us Swathi Cifuentes MD IM MAMMO ORDERABLES Final Re sult * [id number] (01/17/2009 8:17 PM JAVASCRIPT ENGINEER) 01/17/2009 8:17 PM JAVASCRIPT ENGINEER 01/17/2009 8:17 PM JAVASCRIPT ENGINEER Narrative [facility] - 01/25/2009 2:02 PM JAVASCRIPT ENGINEER CYTOPATHOLOGY REPORT: Patient Name: GRACY RIOJAS Gender: F Location: [facility] Case #: [id number] Collect Date: 01/17/2009 Received: 01/17/2009 Reported: 01/25/2009 Final Cytologic Diagnosis: Vaginal/Cervical/Endocervical, liquid based thin layer preparation (Thin Prepe): Satisfactory for evaluation. Endocervical/transformation zone cellular component noted. NEGATIVE FOR INTRAEPITHELIAL LESIONS OR MALIGNANCY No dysplastic squamous cells identified. Atrophic hormonal pattern. Analysis of this sample has been assisted by an automated imaging and review system (LINAGORAprep Imaging System, [employer], [place], [place]). The case is further evaluated and finalized by a shale processing technician and/or pathologist. Electronically Signed Out By [id number] The PAP smear is a preliminary screening procedure designed to detect the presence of cancerous or precancerous cells of the cervix. It is the best means available for early detection of cervical cancer, but it is not perfect. False negative results will sometimes be reported. To reduce the possibility of a false negative result, an annual PAP smear is recommended. Moreover, any suspicious signs of possible symptoms of cancer should be followed up. us Donell Kim MD PATHOLOGY/CYTOLOGY ORDERA BLES Final Result [facility] [address] [place] [address] from Last 3 Months or Most Recently Relevant to Health Maintenance [facility] Care Teams Breakfast Supervisor Relationship Specialty Start Date End Date Provider, None KECIA PCP - General 10/30/16
== END 2024-06-03 07:47 | disposition home or self-care (01) ==
LOC: ANHIMG 07:49
PROVIDERS: PCP Physician Assistant; Visit Provider Obstetrics & Gynecology
DX: Z12.31 Encounter for screening mammogram for malignant neoplasm of breast (principal)
CPT/HCPCS: 77063; 77067